=== PATIENT | male | born 1990 | race Caucasian/White ===

== ENCOUNTER 2018-03-31 13:40 | Emergency (ER) | payer BC ==
[~2018-03-31] VITALS: Ht 172.7 cm; Wt 72.7 kg
[~2018-03-31 13:40] MED LIST: CEPHALEXIN500 M1 PO; NO HOME MEDICATIONS; NORCO 325 MG-51 TAB PO; VOLTAREN 75 DR75 MG PO
[2018-03-31 13:45] VITALS: BP 133/82; TEMP 98
[2018-03-31] MEDS ORDERED: NORCO 325 MG-51 TAB PO (14:04)
[2018-03-31] MEDS ORDERED: CLEOCIN HCL300 MG PO (14:04)
[2018-03-31 14:17] VITALS: PULSE 104
== END 2018-03-31 14:20 | disposition home or self-care (01) ==
LOC: COL.ER 13:40
DX: K02.9 Dental caries, unspecified (principal)

== ENCOUNTER 2018-05-02 11:20 | Emergency (ER) | payer BC ==
[~2018-05-02] VITALS: Ht 170.2 cm; Wt 72.7 kg
[~2018-05-02 11:20] MED LIST changes: +CLEOCIN HCL300 MG PO
[2018-05-02 11:23] VITALS: TEMP 98.2
[2018-05-02] MEDS ORDERED: AMOXICILLIN 50500 MG PO ×2 (13:16→13:45)
[2018-05-02] MEDS ORDERED: NORCO 325 MG-7.1 TAB PO (13:16)
[2018-05-02 13:44] VITALS: BP 121/78; PULSE 79
== END 2018-05-02 13:44 | disposition home or self-care (01) ==
LOC: COL.ER 11:20
DX: K02.9 Dental caries, unspecified (principal); F17.210 Nicotine dependence, cigarettes, uncomplicated

== ENCOUNTER 2018-05-09 18:59 | Emergency (ER) | payer BC ==
[~2018-05-09] VITALS: Ht 167.6 cm; Wt 72.7 kg
[~2018-05-09 18:59] MED LIST changes: +AMOXICILLIN 50500 MG PO; +NORCO 325 MG-7.1 TAB PO
[2018-05-09 19:05] VITALS: TEMP 99.3
[2018-05-09 19:38] VITALS: BP 145/94
[2018-05-09] MEDS ORDERED: ULTRAM 50MG TAB50 MG PO (19:43)
[2018-05-09] MEDS ORDERED: CLEOCIN HCL300 MG PO (19:43)
[2018-05-09 20:13] VITALS: PULSE 80
== END 2018-05-09 20:13 | disposition home or self-care (01) ==
LOC: COL.ER 18:59
DX: K02.9 Dental caries, unspecified (principal); F17.210 Nicotine dependence, cigarettes, uncomplicated; F12.90 Cannabis use, unspecified, uncomplicated

== ENCOUNTER 2018-12-05 08:47 | Emergency (ER) | payer BC ==
[~2018-12-05] VITALS: Ht 167.6 cm; Wt 75.0 kg
[~2018-12-05 08:47] MED LIST changes: +ULTRAM 50MG TAB50 MG PO
[2018-12-05 08:49] VITALS: TEMP 98.1
[2018-12-05] MEDS ORDERED: CEPHALEXIN500 M1 PO (09:44)
[2018-12-05] MEDS ORDERED: DOXYCYCLINE 10100 MG PO (09:44)
[2018-12-05 10:08] VITALS: BP 133/91; PULSE 98
== END 2018-12-05 10:27 | disposition home or self-care (01) ==
LOC: COL.ER 08:47
DX: S81.801A Unspecified open wound, right lower leg, initial encounter (principal); L03.115 Cellulitis of right lower limb; F17.210 Nicotine dependence, cigarettes, uncomplicated

== ENCOUNTER → 2018-12-18 | Outpatient (CLI) | payer BC ==
[~2018-12-18] MED LIST changes: +DOXYCYCLINE 10100 MG PO
== END ==
LOC: ZCOL.LAB 14:15
DX: L02.415 Cutaneous abscess of right lower limb (principal)